=== PATIENT | female | born 1990 | race Caucasian/White ===

== ENCOUNTER → 2024-05-01 08:50 | Outpatient (REF) | payer OTHER, SELFPAY | LOC: HWRAD 08:50 | PROVIDERS: ATTENDING PHYSICIAN Nurse Practitioner Family; FAMILY PHYSICIAN Family Medicine | DX: Z34.90 Encounter for supervision of normal pregnancy, unspecified, unspecified trimester (principal) | CPT/HCPCS: 76801 ==

== ENCOUNTER → 2024-06-06 07:12 | Outpatient (REF) | payer OTHER, SELFPAY | LOC: PNTC 07:12 | PROVIDERS: ATTENDING PHYSICIAN Student in an Organized Health Care Education/Training Program | DX: Z36.0 Encounter for antenatal screening for chromosomal anomalies (principal); Z36.82 Encounter for antenatal screening for nuchal translucency | CPT/HCPCS: 76801; 76813 ==

== ENCOUNTER → 2024-07-25 07:53 | Outpatient (REF) | payer OTHER, SELFPAY | LOC: PNTC 07:53 | PROVIDERS: ATTENDING PHYSICIAN Student in an Organized Health Care Education/Training Program | DX: Z34.00 Encounter for supervision of normal first pregnancy, unspecified trimester (principal) | CPT/HCPCS: 76805; 76817 ==

== ENCOUNTER → 2024-11-20 07:33 | Outpatient (REF) | payer OTHER, SELFPAY | LOC: PNTC 07:33 | PROVIDERS: ATTENDING PHYSICIAN Obstetrics & Gynecology | DX: O98.519 Other viral diseases complicating pregnancy, unspecified trimester (principal) | CPT/HCPCS: 76816 ==

== ENCOUNTER 2024-12-16 01:00 | Inpatient (IN) | payer OTHER, SELFPAY ==
[2024-12-16 01:17] VITALS: BMI 23.7
[2024-12-16 01:23] VITALS: BP 127/78
[2024-12-16 03:01] LABS: Hematocrit 35.6 % (37.0-47.0); Hemoglobin 12.6 g/dL (12.0-16.0); Mean Corp Hgb Conc. 35.4 g/dL (33.0-37.0); Mean Corpuscular Volume 90.4 fL (81.0-99.0); Nucleated Red Blood Cells % 0 %; Platelet Count 174 10^3/uL (130-400); Red Cell Dist. Width 13.0 % (11.5-14.5)
[2024-12-16] MEDS: PENICILLIN 110 UNITS IV (03:11)
[2024-12-16] MEDS: LR 1000 IV ×3 (05:07→11:07)
[2024-12-16] MEDS: FENTANYL/BUPIVACAINE 100 EPIDURAL (05:26)
[2024-12-16] MEDS: SUBLIMAZE 100 MCG EPIDURAL (05:26)
[2024-12-16] MEDS: PENICILLIN 55 UNITS IV ×2 (07:03→11:07)
[2024-12-16 13:12] LABS: Cord VBG B.E. - POC -2.9 mmol/L; Cord VBG HCO3 - POC 22 mmol/L; Cord VBG O2 Sat % - POC 73.8 %; Cord VBG pCO2 - POC 37 mmHg; Cord VBG pO2 - POC 40 mmHg
[2024-12-16] MEDS: ZITHROMAX INFUSION 250 IV (13:30)
[2024-12-16] MEDS: ANCEF 10 IV (13:30)
[2024-12-16] MEDS: TORADOL 15 MG IV ×2 (16:20→21:59)
[2024-12-16] MEDS: BICITRA 30 ML PO (16:23)
[2024-12-16] MEDS: COLACE PO (21:59)
[2024-12-17] MEDS: TORADOL 15 MG IV ×2 (04:52→09:34)
[2024-12-17 05:31] LABS: Hematocrit 26.6 % (37.0-47.0); Hemoglobin 9.1 g/dL (12.0-16.0); Mean Corp Hgb Conc. 34.2 g/dL (33.0-37.0); Mean Corpuscular Volume 92.4 fL (81.0-99.0); Platelet Count 178 10^3/uL (130-400); Red Cell Dist. Width 13.3 % (11.5-14.5)
[2024-12-17] MEDS: COLACE 100 MG PO ×2 (09:34→22:05)
[2024-12-17] MEDS: FEOSOL 325 MG PO (09:34)
--- NOTE | 2024-12-17 10:28 | W.PN.ANS.POP ---
Anesthesia Post Operative
- Anesthesia Post Op Note
Vital Signs Stable-See Nursing Note: Yes
Airway Patent: Yes
Adequate Pain Control: Yes
Change in Mental Status: No
Current Postoperative Nausea & Vomiting: No
Anesthesia Complications: No
General Anesthetic Recall: No
Unplanned Admission: No
Post Op Hydration Adequate: Yes
[2024-12-17] MEDS: MOTRIN 600 MG PO ×2 (15:46→22:05)
[2024-12-18] MEDS: MOTRIN 600 MG PO ×2 (04:22→10:38)
[2024-12-18] MEDS: COLACE 100 MG PO (08:01)
[2024-12-18] MEDS: FEOSOL 325 MG PO (08:01)
--- NOTE | 2024-12-18 15:46 | W.DCSUMMARY ---
Discharge Summary
Discharge Data
Date of Admission: 12/16/24
Date of Discharge: 12/18/24
-
Pending Results: No
Hospital Course
Patient is a 34yo @40.5 who presented to Labor and Delivery on 12/16 with complaints of SROM. She was found to be ruptured for clear fluid. She was GBS positive and started on penicillin. After a few hours, she was 4/90/0. She got an epidural.
After 3 hours, cervical exam was unchanged and she was started on Pitocin. The Pitocin was turned off around 1130 for variable decelerations with a peter to 60. IUPC was placed for an amnioinfusion. She then progressed to complete and was pushing
with good effort and making progress. There were variables that were initially not low and good return with with reassuring tracing in between. FSE was placed and variables became deeper. The vertex was too high for outlet forceps and with patient
remote from delivery, it was recommended to proceed with primary section. She underwent primary low transverse section on 12/16, delivering a viable male . The procedure was uncomplicated. The qualitative blood loss was
505mL. There was a cord around the neck, body, arm and leg. On postop day one, she was doing well with no complaints. Her hemoglobin was 9.1 and she was started on iron supplementation. On postop day 2, she was doing well and desired early discharge
home. She was meeting all postop milestones. She was tolerating a regular diet, voiding spontaneously, had no heavy lochia and was passing flatus. She was discharged home with discharge instructions and return precautions. All questions answered.
She was instructed to follow up in 2 weeks for an incision check.
Discharge Plan
-
Patient Disposition: Home (Routine Discharge)
Discharge Diagnosis/Procedures: primary section, non-reassuring heart tones
Condition: Good
Diet: No restrictions
Activity: No strenuous activity
Driving Restrictions: No driving for 2 weeks
Bathing Restrictions: OK to Shower
Stand Alone Forms: [facility] Delivery
Referrals:
Rosanna,Nelly, MD [Active, Gynecology] - in two weeks
Gwendolyn Ramirez DO [Family Provider, Family Practice]
Prescriptions:
New
acetaminophen 325 mg Tablet
650 mg PO Q4HPRN PRN (Reason: mild pain) Qty: 1 0RF
ibuprofen 600 mg Tablet
600 mg PO Q6HPRN PRN (Reason: cramps) Qty: 60 0RF
Discharge Orders:
Discharge Patient (As Directed); Ordered 12/18/24
Ordered By: Fiona Mora
Discharge Date and Time
Discharge Date/Time: 12/18/24 13:30
Print Language: MAORI
[2024-12-19 13:10] LABS: Syphilis/T. pallidum Ab Reflex Negative (Negative)
[2024-12-21 09:27] LABS: Cord VBG B.E. - POC -2.3 mmol/L; Cord VBG HCO3 - POC 22 mmol/L; Cord VBG O2 Sat % - POC 70.1 %; Cord VBG pCO2 - POC 38 mmHg; Cord VBG pH - POC 7.38; Cord VBG pO2 - POC 37 mmHg
[2024-12-21 09:34] LABS: Cord VBG pH - POC 7.38
== END 2024-12-18 13:30 | disposition home or self-care (01) | DRG 788 ==
LOC: LDRP 01:00
PROVIDERS: Obstetrics & Gynecology; ADMITTING PHYSICIAN Obstetrics & Gynecology; FAMILY PHYSICIAN Family Medicine; REFERRING PHYSICIAN Obstetrics & Gynecology
PROC: 3E0E77Z Introduction of Electrolytic and Water Balance Substance into Products of Conception, Via Natural or Artificial Opening (ICD-10-PCS; 2024-12-16)
PROC: 10H07YZ Insertion of Other Device into Products of Conception, Via Natural or Artificial Opening (ICD-10-PCS; 2024-12-16)
PROC: 10D00Z1 Extraction of Products of Conception, Low, Open Approach (ICD-10-PCS; 2024-12-16)
DX: O48.0 Post-term pregnancy (principal); Z3A.40 40 weeks gestation of pregnancy; Z37.0 Single live birth; O99.824 Streptococcus B carrier state complicating childbirth; O42.02 Full-term premature rupture of membranes, onset of labor within 24 hours of rupture; O69.81X0 Labor and delivery complicated by cord around neck, without compression, not applicable or unspecified; O76 Abnormality in fetal heart rate and rhythm complicating labor and delivery; O69.2XX0 Labor and delivery complicated by other cord entanglement, with compression, not applicable or unspecified
CPT/HCPCS: 36415; 85025; 85027; 86780; 86850; 86900; 86901; 88307